=== PATIENT | male | born 1990 | race Caucasian/White ===

== ENCOUNTER 2018-12-20 09:03 | Inpatient (IN) | payer OTHER ==
[2018-12-19 17:44] VITALS: Ht 188 cm; Wt 109.1 kg
[2018-12-20] VITALS (19 sets, daily range): BP systolic 117–153; BP diastolic 55–78; PULSE 60–100; RESP 13–28
[~2018-12-20] VITALS: Ht 188 cm; Wt 109.1 kg
[~2018-12-20 09:03] MED LIST: CEFAZOLIN 1 GM INJ ONE; CEFAZOLIN 1 GM/50 ML (PMX) 50 ML IVPB ONE; SOD CHLORIDE 0.9% 1,000 ML IV SCH
--- NOTE | 2018-12-20 11:04 | PREAC ---
Date/Time of Note Date/Time of Note DATE: 12/20/18 TIME: 11:02 Anesthesia Eval and Record Evaluation Time Pre-Procedure Interview DATE: 12/20/18 TIME: 11:02 Age 28 Sex male NPO: 8 hrs Preoperative diagnosis bilateral gynecomastesia Planned procedure bilateral mastectomy Past Medical History Past Medical History: None Surgery & Anesthesia Issues No known issue Meds Anticoagulation: No Beta Ying within 24 hr: No Reason Beta Iyng not given: Pt. not on B-Ying No Active Prescriptions or Reported Meds Current Medications Sodium Chloride 1,000 ml @ 75 mls/hr [id number] IV ; Start 12/20/18 at 08:00; Stop 12/20/18 at 21:19 Meds reviewed: Yes Allergies Coded Allergies: No Known Drug Allergies (Unverified Allergy, Unknown, 12/20/18) Allergies Reviewed: Yes Labs/Studies Labs Reviewed: Reviewed by anesthesiologist test: N/A Pre-procedure Exam Last vitals Vital Signs Date Temp Pulse Resp B/P (MAP) Pulse Ox O2 O2 Flow FiO2 Time Delivery Rate 12/20/18 96.7 98 18 117/63 98 Room Air 09:55 (81) Airway: Adequate mouth opening, Adequate thyromental dist Mallampati: Mallampati IV Teeth: Normal Lung: Normal Heart: Normal ASA Physical Status ASA physical status: 2 Emergency: None Pre-operative Attestations Prior to commencing anesthesia and surgery, the patient was re-evaluated, there was verification of: *The patient's identity *The results of appropriate recent lab work and preoperative vital signs *The above evaluation not changing prior to induction *Anesthetic plan, risk benefits, alternative and complications discussed with patient/family; questions answered; patient/family understands, accepts and wishes to proceed. STEVEN LYNN DO Dec 20, 2018 11:03
[2018-12-20] MEDS ORDERED: HYDROmorphONE 2 MG/ML SYG ONE ×3 (11:09→13:16)
[2018-12-20] MEDS ORDERED: MIDAZOLAM 1 MG/ML 2 ML INJ ONE ×2 (11:09→12:08)
[2018-12-20] MEDS ORDERED: HYDROmorphONE 1 MG/5 ML IV SYRINGE IV PRN (11:30)
[2018-12-20] MEDS ORDERED: DIPHENHYDRAMINE 50 MG INJ IV PRN (11:30)
[2018-12-20] MEDS ORDERED: LORAZEPAM 2 MG INJ IV PRN (11:30)
[2018-12-20] MEDS ORDERED: ONDANSETRON 4 MG INJ IV PRN (11:30)
[2018-12-20] MEDS ORDERED: LABETALOL HCL 20MG INJ IV PRN (11:30)
[2018-12-20] MEDS ORDERED: MEPERIDINE 25 MG INJ IV PRN (11:30)
--- NOTE | 2018-12-20 12:07 | PREAC ---
Date/Time of Note Date/Time of Note DATE: 12/20/18 TIME: 12:04 Anesthesia Eval and Record Evaluation Time Pre-Procedure Interview DATE: 12/20/18 TIME: 12:04 Age 28 Sex male NPO: 8 hrs Preoperative diagnosis bilateral gynecomastesia Planned procedure bilateral mastectomy Past Medical History Past Medical History: None GI: Obesity, Morbid obesity Surgery & Anesthesia Issues No known issue Meds Anticoagulation: No Beta Ying within 24 hr: No Reason Beta Ying not given: Pt. not on B-Ying No Active Prescriptions or Reported Meds Current Medications Sodium Chloride 1,000 ml @ 75 mls/hr [id number] IV ; Start 12/20/18 at 08:00; Stop 12/20/18 at 21:19 Hydromorphone HCl (Dilaudid) 0.2 mg PACU PRN IV MILD PAIN 1-3; Start 12/20/18 at 11:30; Stop 12/20/18 at 16:00 Hydromorphone HCl (Dilaudid) 0.4 mg PACU PRN IV MOD PAIN 4-6; Start 12/20/18 at 11:30; Stop 12/20/18 at 16:00 Hydromorphone HCl (Dilaudid) 0.6 mg PACU PRN IV SEVERE PAIN 7-10; Start 12/20/18 at 11:30; Stop 12/20/18 at 16:00 Ondansetron HCl (Zofran Inj) 4 mg PACU ORDER PRN IV NAUSEA/VOMITING; Start 12/20/18 at 11:30; Stop 12/20/18 at 16:00 Labetalol HCl (Labetalol) 5 mg PACU ORDER PRN IV HIGH BLOOD PRESSURE; Start 12/20/18 at 11:30; Stop 12/20/18 at 16:00 Meperidine HCl (Demerol) 25 mg PACU ORDER PRN IV .RIGORS; Start 12/20/18 at 11:30; Stop 12/20/18 at 16:00 Diphenhydramine HCl (Benadryl) 25 mg PACU ORDER PRN IV .PRURITUS; Start 12/20/18 at 11:30; Stop 12/20/18 at 16:00 Lorazepam (Ativan) 1 mg PACU ORDER PRN IV .ANXIETY; Start 12/20/18 at 11:30; Stop 12/20/18 at 16:00 Meds reviewed: Yes Allergies Coded Allergies: No Known Drug Allergies (Unverified Allergy, Unknown, 12/20/18) Allergies Reviewed: Yes Labs/Studies Labs Reviewed: Reviewed by anesthesiologist test: N/A Pre-procedure Exam Last vitals Vital Signs Date Temp Pulse Resp B/P (MAP) Pulse Ox O2 O2 Flow FiO2 Time Delivery Rate 12/20/18 96.7 98 18 117/63 98 Room Air 09:55 (81) Airway: Adequate mouth opening, Adequate thyromental dist Mallampati: Mallampati II Teeth: Normal Lung: Normal Heart: Normal ASA Physical Status ASA physical status: 2 Emergency: None Planned Anesthetic General/MAC: ETT Pre-operative Attestations Prior to commencing anesthesia and surgery, the patient was re-evaluated, there was verification of: *The patient's identity *The results of appropriate recent lab work and preoperative vital signs *The above evaluation not changing prior to induction *Anesthetic plan, risk benefits, alternative and complications discussed with patient/family; questions answered; patient/family understands, accepts and wishes to proceed. PORFIRIO CHINO Dec 20, 2018 12:07
[2018-12-20] MEDS ORDERED: FENTAnyl 50 MCG/ML VIAL ONE ×2 (12:08→12:27)
[2018-12-20] MEDS ORDERED: SUGAMMADEX SODIUM 200 MG/2 ML VIAL IV ONE (12:20)
[2018-12-20] MEDS ORDERED: ONDANSETRON 4 MG INJ ONE (12:33)
[2018-12-20] MEDS ORDERED: DEXAMETHASONE 4 MG/ML 5 ML INJ ONE (12:33)
[2018-12-20] MEDS ORDERED: LIDOCAINE 100 MG SYRINGE ONE (13:16)
[2018-12-20] MEDS ORDERED: ROCURONIUM 50 MG INJ ONE (13:16)
[2018-12-20] MEDS ORDERED: PROPOFOL 100 ML ONE (13:16)
[2018-12-20] MEDS ORDERED: SUCCINYLCHOLINE CHLORIDE 100 MG/5 ML SYG IV ONE (13:16)
[2018-12-20] MEDS ORDERED: HYDROCODONE/APAP (7.5/325) TAB PO PRN (14:00)
--- NOTE | 2018-12-20 14:00 | SIPON ---
Date/Time of Note Date/Time of Note DATE: 12/20/18 TIME: 13:57 Operative Report Preoperative Diagnosis Bilateral gynecomastia Postoperative Diagnosis Same Operation/Procedure Performed Bilateral simple mastectomies Surgeon see signature line vet assistant Dr Gomez Anesthesia: general Estimated blood loss: 10 - 50 ml's Transfusion Required none Specimen Left simple mastectomy specimen and additional subareolar tissue and right simple mastectomy specimen and additional inferior right breast tissue Grafts/Implants none Complications none CARI SHEN MD Dec 20, 2018 14:00
--- NOTE | 2018-12-20 14:43 | PAC ---
Date/Time of Note Date/Time of Note DATE: 12/20/18 TIME: 14:43 Post-Anesthesia Notes Post-Anesthesia Note Last documented vital signs Vital Signs Date Temp Pulse Resp B/P (MAP) Pulse Ox O2 O2 Flow FiO2 Time Delivery Rate 12/20/18 98.2 14:42 12/20/18 98 18 117/63 98 Room Air 09:55 (81) Activity: WNL Respiratory function: WNL Cardiovascular function: WNL Mental status: Baseline Pain reasonably controlled: Yes Hydration appropriate: Yes Nausea/Vomiting absent: Yes PORFIRIO CHINO Dec 20, 2018 14:43
[2018-12-20] MEDS: HYDROmorphONE 1 MG/5 ML IV SYRINGE IV PRN ×4 (14:56→15:44)
--- NOTE | 2018-12-20 16:27 | OPR ---
DATE OF OPERATION: 12/20/2018 PREOPERATIVE DIAGNOSIS: Bilateral gynecomastia. POSTOPERATIVE DIAGNOSIS: Bilateral gynecomastia. OPERATION PERFORMED: Bilateral simple mastectomies. ANESTHESIA: General. ANESTHESIOLOGIST: Ward Ramirez CRNA SURGEON: Navin Forbes MD PHLEBOTOMIST: Jose Luz MD and Vicki Gomez MD INDICATIONS FOR PROCEDURE: The patient is a 28-year-old male who presented with significant bilatera l gynecomastia which caused some significant mental anguish. After doing a full history and physical and ruling out other specific etiology such as testicular tumor or pituitary tumor with both physica l exam and blood test, the patient was then counseled as to the benefit of bilateral simple mastectom ies. He consented and was scheduled for surgery. DESCRIPTION OF PROCEDURE: The patient was brought to the operating theater, placed under general ane sthesia. The breasts and axillary regions were prepped and draped bilaterally in the usual sterile f ashion. Planned incisions were demarcated with marking pens bilaterally around the nipple areolar co mplex starting at 9:00 through 12 o'clock to 3 o'clock and approximately 1.5 cm extensions both media lly and laterally took place on both breasts. Attention was first directed to the left side. The in cision was carried out with 15-blade scalpel. Subcutaneous tissue was dissected with cautery. The s kin edges were elevated with Allis Jack clamps and skin flaps were created using cautery first super iorly to the level where the visual gynecomastia ended, then medially to the sternal border, inferior ly to the inframammary fold and laterally to the border of the breast. Mastectomy then took place fr om medial to lateral using cautery. Axillary tail was then also transected with cautery. The specim en was removed and oriented. It was sent for pathologic analysis. Dr. Forbes inspected the flaps charles t are quite adequate except in the subareolar region, there is some excessive tissue. This tissue wa s separately resected and sent for permanent pathologic analysis. The wound was then irrigated and m inimal bleeding was controlled with cautery. A #10 flat Yariel-Urrutia drain was brought through the left mid axillary line, cut to size, laid over the pectoralis major muscle and secured in place with 2-0 nylon suture. The skin was reapproximated with a deep dermal layer, 4-0 Vicryl sutures, followed by final skin approximation with 5-0 PDS sutures. Attention was then directed to the right side. A n incision was carried out with 15-blade scalpel. Subcutaneous tissue was dissected with cautery. S kin flaps were then created superiorly to the point where there was no longer palpable gynecomastia, medially to the sternal border, inferiorly to the inframammary fold and laterally to the border of th e breast tissue. The residual axillary tail was then also transected with cautery. Specimen was ranjana vated, transected, oriented and sent for pathologic analysis. Skin flaps were palpated. There were quite adequate except there was some additional inferior breast tissue remaining. It was resected se parately and sent for permanent pathologic analysis. The wound was irrigated. Minimal bleeding was controlled with cautery. A #10 flat Yariel-Urrutia drain was then brought through the right mid axill vivian line, cut to size and laid over the pectoralis major muscle. It was secured in place with 2-0 ny simone suture in the standard fashion. The skin on the right side was then reapproximated with 4-0 Vicr yl sutures in deep dermal interrupted fashion and final skin approximation took place with 5-0 PDS nunez tures and a subcuticular fashion. Dermabond were then applied to both wounds as well as sterile dres sing and the patient was then transported in stable condition to the recovery room where circumferent ial compression dressing was applied. The patient tolerated the procedure well. The total estimated blood loss was approximately 40 mL. There were no complications. Dictated By: NAVIN BROWN/AISHA Conf#: [id number] DID#: [id number]
[2018-12-20] MEDS ORDERED: FENTAnyl 50 MCG/ML VIAL IV PRN ×3 (16:30)
[2018-12-20] MEDS ORDERED: OXYCODONE/ACETAMINOPHEN (5/325) TAB PO PRN ×2 (16:30)
== END 2018-12-20 18:32 | disposition home or self-care (01) | DRG 585 ==
LOC: REC 09:03 → EDSTATUS 09:30
PROVIDERS: ADMIT Surgery Surgical Oncology; ATTEND Surgery Surgical Oncology
PROC: 0HBV0ZZ Excision of Bilateral Breast, Open Approach (ICD-10-PCS; principal; 2018-12-20 11:00)
DX: N62 Hypertrophy of breast (principal)
CPT/HCPCS: 88307; J0690; J1100; J1170; J2001; J2060; J2250; J2405; J3010